=== PATIENT | female | born 1985 | race Two or more races ===

== ENCOUNTER 2019-10-06 12:45 | Inpatient (IN) | payer OTHER ==
[~2019-10-06] VITALS: Ht 160 cm; Wt 66.2 kg
[2019-10-26] MEDS ORDERED: PRENATAL 19 TA1 EAC1 PO (05:42)
[2019-10-26] MEDS ORDERED: IRON (05:45)
[2019-10-26] MEDS ORDERED: IRON236 MG PO (05:46)
== END 2019-10-28 16:36 | disposition home or self-care (01) | DRG 807 ==
LOC: OB/GYN 10-21 12:45 → LDR 10-26 05:12 → OB/GYN 10-26 05:12
PROVIDERS: ADMIT Obstetrics & Gynecology; ATTEND Obstetrics & Gynecology
PROC: 10E0XZZ Delivery of Products of Conception, External Approach (ICD-10-PCS; principal; 2019-10-26)
PROC: 4A1HXFZ Monitoring of Products of Conception, Cardiac Rhythm, External Approach (ICD-10-PCS; 2019-10-26)
PROC: 3E033VJ Introduction of Other Hormone into Peripheral Vein, Percutaneous Approach (ICD-10-PCS; 2019-10-26)
PROC: 10907ZC Drainage of Amniotic Fluid, Therapeutic from Products of Conception, Via Natural or Artificial Opening (ICD-10-PCS; 2019-10-26)
DX: O80 Encounter for full-term uncomplicated delivery (principal); Z37.0 Single live birth; Z3A.39 39 weeks gestation of pregnancy